=== PATIENT | female | born 1935 | race Caucasian/White ===

== ENCOUNTER 2017-11-13 08:33 | Emergency (ER) | payer OTHER ==
[2017-11-13 09:05] VITALS: BP 128/78
--- NOTE | 2017-11-13 09:23 | UC ---
Lower Extremity/Ankle HPI - HPI Summary HPI Summary: She has hx of swelling and intermittent cellulitis. She says this looks and feels similar to prior episodes. She is on diuretics. 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 No hx of CHF. She denies new or worsening PND , orthopnea, GARZA, chest pain or sob. She uses compression stockings when she can tolerate them. No fever or chills. No posterior calf pain. No hx of MRSA or DM. - History of Current Complaint Chief Complaint: UCSkin Stated Complaint: PAUL LEG SWELLING Time Seen by Provider: 11/13/17 08:59 Hx Obtained From: Patient Onset/Duration: Gradual Onset, Lasting Days, Still Present Severity Initially: Moderate Severity Currently: Moderate Pain Intensity: 3 Aggravating Factor(s): Standing, Ambulation Alleviating Factor(s): Rest, Elevation Able to Bear Weight: Yes - Allergies/Home Medications Allergies/Adverse Reactions: Allergies Allergy/AdvReac Type Severity Reaction Status Date / Time Generics AdvReac "can't Uncoded 11/13/17 09:01 tolerate" Pain Relievers AdvReac GI Upset Uncoded 11/13/17 09:01 Home Medications: Home Medications Albuterol 2.5MG/3ML (0.083%)* [Ventolin 2.5 MG/3 ML NEB.JOSE*] 1.25 mg INH Q6H PRN 11/13/17 [History Confirmed 11/13/17] Cholecalciferol TAB* [Vitamin D TAB*] 2,000 units PO DAILY 11/13/17 [History Confirmed 11/13/17] Fluticasone-Salmeterol 250-50* [Advair Diskus 250-50*] 1 puff INH DAILY [History Confirmed 11/13/17] Hydrochlorothiazide TAB* [Hydrodiuril TAB*] 12.5 mg PO DAILY 11/13/17 [History Confirmed 11/13/17] Irbesartan (NF) [Avapro (NF)] 150 mg PO DAILY 11/13/17 [History Confirmed ] Levothyroxine TAB* [Synthroid TAB*] 112 mcg PO DAILY 11/13/17 [History Confirmed 11/13/17] Pantoprazole TAB (NF) [Protonix TAB (NF)] 40 mg PO DAILY 11/13/17 [History Confirmed 11/13/17] Vitamin THERAPEUTIC TAB* [Theragran TAB*] 1 tab PO DAILY 11/13/17 [History Confirmed 11/13/17] PMH/Surg Hx/FS Hx/Imm Hx Previously Healthy: No - Aortic stenosis. - Surgical History Surgical History: Yes Surgery Procedure, Year, and Place: Cholecystectomy, 1984, [place]; Total Hysterectomy, 1970, [place]; Ovarian Cystectomy, 1958, [place]; Appendectomy, 1942, [place] - Family History Known Family History: Positive: Other - No FH related to cellulitis or leg redness. - Social History Alcohol Use: Rare Substance Use Type: None Smoking Status (MU): Former Smoker Length of Time of Smoking/Using Tobacco: 1 - 1 1/2 PPD x 17 Years When Did the Patient Quit Smoking/Using Tobacco: 1968 Review of Systems Skin: Other - skin redness of paul shins. Musculoskeletal: Edema All Other Systems Reviewed And Are Negative: Yes Physical Exam Triage Information Reviewed: Yes Appearance: Well-Appearing, No Pain Distress, Obese Vital Signs: Initial Vital Signs Temp 98.3 F 11/13/17 08:54 Pulse 100 11/13/17 08:54 Resp 18 11/13/17 08:54 BP 128/78 11/13/17 08:54 Pulse Ox 98 11/13/17 08:54 Vital Signs Reviewed: Yes Eyes: Positive: Conjunctiva Clear. Negative: Conjunctiva Inflamed ENT: Positive: Normal ENT inspection. Negative: Nasal congestion, Nasal drainage Neck: Positive: Supple, Nontender, No Lymphadenopathy Respiratory: Positive: Lungs clear, Normal breath sounds, No respiratory distress, No accessory muscle use. Negative: Respiratory distress, Decreased breath sounds, Accessory muscle use, Crackles, Rhonchi, Stridor Cardiovascular: Positive: Brisk Capillary Refill, Murmur:Sys:Grade _?_/ - 3. Negative: Tachycardia Abdomen Description: Positive: No Organomegaly, Soft. Negative: Distended, Guarding Musculoskeletal: Positive: Strength Intact, Edema @ - Paul shins/ankles. No calf tenderness. Neg homans paul. Neurological: Positive: Alert, Muscle Tone Normal, Fatigued Psychological: Positive: Age Appropriate Behavior Skin: Positive: Other - Paul lower anterior calves are pink. Not hot or red. No severe tenderness. Lower Extremity Course/Dx - Course Course Of Treatment: cellulitis with out hx of dm or mrsa. We discussed how to reduce the swelling. She agrees to return for any worrisome features such as fever, worsening redness. - Differential Dx/Diagnosis Provider Diagnoses: cellulitis. chronic swelling. Discharge - Sign-Out/Discharge Documenting (check all that apply): Patient Departure - Discharge Plan Condition: Good Disposition: HOME Prescriptions: Dicloxacillin CAP* [Dynapen CAP*] 500 mg PO TID #30 cap Patient Education Materials: Cellulitis (ED) Referrals: Stephanie Kumar MD [Primary Care Provider] - 1 Day Additional Instructions: Return for re evaluation if this gets worse. - Billing Disposition and Condition Condition: GOOD Disposition: Home
--- NOTE | 2017-11-14 14:27 | UC ---
- Progress Note Progress Note: patient unable to tolerate dicloaxcillin, will switch antibiotic to aomxicillin to cover strep Discharge - Sign-Out/Discharge Documenting (check all that apply): Post-Discharge Follow Up - Discharge Plan Condition: Good Disposition: HOME Prescriptions: Dicloxacillin CAP* [Dynapen CAP*] 500 mg PO TID #30 cap Patient Education Materials: Cellulitis (ED) Referrals: Stephanie Kumar MD [Primary Care Provider] - 1 Day Additional Instructions: Return for re evaluation if this gets worse. - Billing Disposition and Condition Condition: GOOD Disposition: Home
== END 2017-11-13 09:27 | disposition home or self-care (01) ==
LOC: UCCORT 08:33
DX: L03.116 Cellulitis of left lower limb (principal); L03.115 Cellulitis of right lower limb; Z88.6 Allergy status to analgesic agent; Z88.8 Allergy status to other drugs, medicaments and biological substances; I35.0 Nonrheumatic aortic (valve) stenosis; Z87.891 Personal history of nicotine dependence
CPT/HCPCS: 99202; G0463

== ENCOUNTER 2017-11-22 07:06 | Emergency (ER) | payer OTHER ==
--- OUTSIDE RECORDS SUMMARY | 2017-11-22 07:18 | XMS REPORT ---
:1935 External Reference #:[id number] Author Organization [facility] Address [address] [place] [address] Phone [phone] Care Team Providers Name Role Phone Stephanie Kumar MD Primary Care Physician Unavailable Payers Type Date Identification Numbers Payment Provider Subscriber Commercial Effective: Policy Number: [id number] [employer] Liya Nguyen 2017 Group Number: [id number] [address] PayID: [id number] [place] [address] Commercial Policy [facility]: [id number] PayID: [id number] [address] [address] [place] [address] Problems Date Description Provider Status Onset: 11/15/2010 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 Active Onset: 01/16/2013 Acute sinusitis Kristal Cheng MD Active Onset: 10/19/2013 Lumbar sprain Stephanie Kumar M.D. Active Family History Date Family Member(s) Problem(s) Comments Father due to Stroke () Mother due to COPD () First Daughter Carotid Stenosis First Daughter Breast Cancer First Brother due to pancreatitis () Second Brother due to COPD () Third Brother due to Unknown Causes () First Sister Diabetes Mellitus, II Social History Type Date Description Comments Marital Status Has been 1 time Occupation Retired ETOH Use Denies alcohol use Smoking Patient is a former smoker Allergies, Adverse Reactions, Alerts Date Description Reaction Status Severity Comments 02/12/2011 Pneumovax active sore arm for 3 weeks 05/29/2011 Hydrochlorothiazide active palpitations 10/24/2010 NKDA inactive Medications Medication Date Status Form Strength Qnty SIG Indications Ordering Provider Jobst Anti-Embolism 03/05 Active Misc 2Pair to be I87.2 Stephanie Knee High/Closed worn Gauss, Toe/Medium Regular daily for M.D. venouos insuffici ency. Wide calf Albuterol Sulfate 08/10 Active Nebulizer 1.25mg/3M 4boxe as L s directed Gauss, up to M.D. four times a day for copd Advair Diskus 08/01 Active Aerosol 250-50mcg 1unit 1 puff [id number] Stephanie /Dose s twice a Chinuss, day M.D. Vitamin B-12 ER 04/25 Active Tablets ER 1000mcg 100ta 1 by bs mouth Chinuss, every day M.D. Vitamin D-3 04/25 Active Capsules 1000Unit 100ca 1 by ps mouth Chinuss, every day M.D. Irbesartan 04/25 Active Tablets 150mg 90tab take 1 Stephanie s tablet by Stacy, mouth M.D. once daily Hydrochlorothiazide 04/25 Active Tablets 12.5mg 90tab take 1 s tablet by Stacy, mouth M.D. every morning Pantoprazole Sodium 04/[address] 40mg 90tab 1 by s mouth Chinuss, every day M.D. Synthroid 04/11 Active Tablets 112mcg 90tab 1 by Stephanie s mouth Chinuss, every day M.D. Travatan Z Active Solution 0.004% Unknown /0000 Azithromycin 05/14 Hx Tablets 250mg 6tabs 2 by J44.0 Jacek Son /Jhon Kumar MD - today, 1 06/04 by arcelia day 2 thru 5 Prednisone 05/14 Hx Tablets 20mg 8tabs 2 by J45.909 Jacek Son /Jhon Kumar MD - every day 06/04 Metronidazole 02/14 Hx Tablets 250mg 30tab 1 by s mouth Stacy, - three M.D. 03/05 times a day Albuterol Sulfate 08/10 Hx Nebulizer 1.25mg/3M as L directed Gauss, - up to M.D. 08/10 times a day for copd Advair HFA 08/01 Hx Aerosol 115-21mcg 8gm 2 puff J45.909 /Act twice day Gauss, - M.D. 08/01 Prednisone 06/26 Hx Tablets 20mg 3tabs 1 by J45.909 mouth Gauss, - daily for M.D. 08/01 3 days Azithromycin 06/26 Hx Tablets 250mg 6tabs 2 by J20.9 mouth Gauss, - today, 1 M.D. 08/01 by mouth /2016 day 2 thru 5 Ventolin HFA 06/20 Hx Aerosol 108(90Bas 24gm 2 puff J45.909 e) four Gauss, - mcg/Act times a M.D. 05/14 day needed Albuterol Sulfate 05/10 Hx Nebulizer 1.25mg/3M 180ml as L directed Gauss, - up to M.D. 09/25 times a day for copd Advair Diskus 04/25 Hx Aerosol 250-50mcg 90uni 1 puff I11.9 /Dose ts twice a Gauss, - day M.D. 06/20 Albuterol Sulfate 04/25 Hx Nebulizer (2.5mg/3M 100un 1 four L) 0.083% its times a Gauss, - day as M.D. 05/10 Hydrochlorothiazide 04/11 Hx Tablets 25mg 90tab 1 by s mouth Gauss, - every day M.D. 04/25 Lidocaine 10/28 Hx Ointment 5% 60uni as 847.2 ts directed Gauss, - bid M.D. 04/11 Cyclobenzaprine HCL 10/19 Hx Tablets 5mg 14tab i twice a 847.2 s day Chinuss, - M.D. 04/11 Lidoderm 10/19 Hx Patches 5% 5unit apply 847.2 s patch to Stacy, - affected M.Surinder 10/28 area back change daily Bactrim DS 08/20 Hx Tablets 800-160mg 14tab 1 po bid 788.1 Gal Mack M.D. 09/08 Cipro 08/19 Hx Tablets 250mg 14tab 1 po bid 788.1 Gal Mack M.D. 08/20 Zithromax Z-Teddy 07/09 Hx Tablets 250mg 6tabs 2 po day 466.0 1 then 1 Stacy, - po daily M.DKarsten 09/08- Augmentin 07/02 Hx Tablets 875-125mg 20tab 1 po bid 466.0 s with food Gal Kumar M.D. 07/09 Zithromax 01/16 Hx Tablets 250mg 6pill 2 po day s 1, 1 po RingMD - qd x days 01/21 2- Lisinopril 12/10 Hx Tablets 40mg 90tab 1 po qd 402.10 Gal Mack M.D. 04/11 Lisinopril 11/10 Hx Tablets 30mg 90tab 1 po qd 402.10 Gal Mack M.D. 12/10 Lisinopril 10/29 Hx Tablets 20mg 135ta 1 and 05/07 402.10 bs po qd Gal Kumar M.D. 11/10 Ventolin HFA 10/29 Hx Aerosol 108(90Bas 1unit 2 puff 786.09 e) s qid prn Stacy - mcg/Act M.DKarsten 04/11 Bactrim DS 10/08 Hx Tablets 800-160mg 14tab 1 po bid 599.0 Gal Mack.Surinder 01/16 Advair Diskus 05/08 Hx Aerosol 250-50mcg 60uni inhale /Dose ts one puff Stacy - by mouth M.DKarsten 04/11 twice a day Ventolin HFA 01/01 Hx Aerosol 108(90Bas 1unit 2 puff 786.09 e) mcg/ac s qid prn Gal Kumar M.D. 10/29 Amoxicillin 09/12 Hx Capsules 500mg 20cap 1 tablets 460.00 s po bid Gal Kumar M.D. 12/02 Lisinopril 05/29 Hx Tablets 40mg 90tab Take One 402.10 s Tablet By Stacy - Mouth Sonali 10/29 Every Day Celexa 05/23 Hx Tablets 10mg 90tab 1 po 786.50 s daily Gal Kumar M.D. 09/12 Diovan HCT 05/15 Hx Tablets 160-12.5m 90tab 1 po qd 402.10 g Gal Mack M.D. 05/29 Xanax 05/15 Hx Tablets 0.5mg 90tab 1 po tid 786.50 s Gal Kumar M.D. 05/23 Protonix 05/[address] 20mg 30tab 1 po qd. s Is Stacy - approved M.DKarsten 07/29 Albuterol Inhaler 02/27 Hx 1unit 2 puffs 493.90 s as needed Stacy - 4 x a day Peter.Surinder 07/29 Advair Diskus 02/27 Hx Aerosol 100-50mcg 1unit 1 puff 493.90 /Dose s bid Gal Kumar M.D. 07/29 Acidophilus 02/22 Hx Capsules 90cap 1 po tid 466.00 Stephanie High-Potency s with Stacy, - meals M.DKarsten 04/11 Tessalon 02/22 Hx Capsules 200mg 30cap 1 po bid 466.00 s prn cough Gal Kumar M.D. 04/11 Ceftin 02/20 Hx Tablets 500mg 20tab 1 po bid Gal Mack M.D. 02/27 Levofloxacin 02/15 Hx Tablets 500mg 10tab 1 po qd Gal Mack M.D. 02/27 Azithromycin 02/12 Hx Tablets 500mg 5tabs 1 po qd 466.00 Gal Kumar M.D. 07/29 Benzonatate 02/12 Hx Capsules 100mg 30cap 1 po q 466.00 s 8hr Gal Pratt M.D. 04/11 Vane Allergy 10/24 Hx Tablets 60mg 90tab 1 po qd Gal Mack M.D. 04/11 Bystolic 10/24 Hx Tablets 10mg 90tab 1 po qd Gal Mack M.D. 10/24 Synthroid 10/24 Hx Tablets 200mcg 90tab 1 po qd Gal Mack M.D. 11/15 Aciphex 10/[address] 20mg 90tab 1 po qd Gal Mack M.D. 11/15 Lisinopril 10/24 Hx Tablets 40mg 90tab 1 po qd 402.10 Gal Mack M.D. 05/15 Albuterol Sulfate 10/24 Hx Tablets 2mg 90tab 1 by Gal Dockery every day Sonali 04/11 as needed Immunizations CPT Code Status Date Vaccine Lot # [id number] Given 04/02/2017 Influenza Virus (Afluria) Split Virus 3 Years Of Age And Older Q2035 Given 04/02/2017 Influenza Virus (Afluria) Split Virus 3 Years Of Age And Older Q2037 Given 04/25/2016 Influenza Vaccine (Fluvirin) 1 Years Of Age Or [id number] Older Q2037 Given 03/23/2013 Influenza Vaccine (Fluvirin) 3 Years Of Age Or Older [id number] Given 03/23/2013 Influenza Vaccine (Fluvirin) 3 Years Of Age Or Older [id number] Given 04/07/2012 Influenza Vaccine (Fluvirin) 3 Years Of Age Or Older [id number] Given 04/07/2012 Influenza Vaccine (Fluvirin) 1 Years Of Age Or [id number] Older [id number] Given 11/15/2010 Pneumovax [place]val[place] [id number] Vital Signs Date Vital Result Comment 10/30/2017 BP Systolic 136 mmHg BP Diastolic 62 mmHg Height 226 inches 18'10" Weight 60.00 lb BMI (Body Mass Index) 0.8 kg/m2 09/25/2017 BP Systolic 144 mmHg BP Diastolic 68 mmHg Height 60 inches 5'0" Weight 225.00 lb BMI (Body Mass Index) 43.9 kg/m2 09/16/2017 BP Systolic 160 mmHg BP Diastolic 90 mmHg BP Systolic Recheck 140 mmHg right arm large cuff BP Diastolic Recheck 68 mmHg right arm large cuff Heart Rate 85 /min Respiratory Rate 18 /min Height 60 inches 5'0" Weight 224.00 lb BMI (Body Mass Index) 43.7 kg/m2 O2 % BldC Oximetry 93 % 06/04/2017 BP Systolic 136 mmHg BP Diastolic 80 mmHg Respiratory Rate 18 /min Height 60 inches 5'0" Weight 224.00 lb BMI (Body Mass Index) 43.7 kg/m2 05/14/2017 BP Systolic 128 mmHg BP Diastolic 66 mmHg Heart Rate 83 /min Body Temperature 98.1 F Respiratory Rate 20 /min Height 60 inches 5'0" Weight 224.00 lb BMI (Body Mass Index) 43.7 kg/m2 03/05/2017 BP Systolic 130 mmHg BP Diastolic 80 mmHg Respiratory Rate 18 /min Height 60 inches 5'0" Weight 229.00 lb BMI (Body Mass Index) 44.7 kg/m2 02/07/2017 BP Systolic 144 mmHg BP Diastolic 80 mmHg Height 60 inches 5'0" Weight 224.00 lb BMI (Body Mass Index) 43.7 kg/m2 12/03/2016 BP Systolic 132 mmHg BP Diastolic 80 mmHg Height 60 inches 5'0" Weight 225.00 lb BMI (Body Mass Index) 43.9 kg/m2 08/15/2016 BP Systolic 142 mmHg BP Diastolic 64 mmHg 08/01/2016 BP Systolic 148 mmHg BP Diastolic 70 mmHg Height 60 inches 5'0" Weight 222.00 lb BMI (Body Mass Index) 43.4 kg/m2 06/26/2016 BP Systolic 124 mmHg BP Diastolic 80 mmHg Body Temperature 97.4 F 06/20/2016 Heart Rate 82 /min O2 % BldC Oximetry 97 % 04/25/2016 BP Systolic 132 mmHg BP Diastolic 80 mmHg Height 60 inches 5'0" Weight 219.00 lb BMI (Body Mass Index) 42.8 kg/m2 11/17/2013 BP Systolic 132 mmHg BP Diastolic 80 mmHg 10/19/2013 BP Systolic 148 mmHg BP Diastolic 74 mmHg 09/08/2013 BP Systolic 148 mmHg sitting BP Diastolic 66 mmHg sitting BP Systolic Recheck 146 mmHg standing BP Diastolic Recheck 70 mmHg standing Height 58 inches 4'10" Weight 225.00 lb BMI (Body Mass Index) 47.0 kg/m2 08/19/2013 BP Systolic 132 mmHg BP Diastolic 80 mmHg 08/06/2013 BP Systolic 122 mmHg BP Diastolic 76 mmHg 07/09/2013 BP Systolic 132 mmHg BP Diastolic 80 mmHg 07/02/2013 BP Systolic 140 mmHg BP Diastolic 88 mmHg Body Temperature 99.2 F 05/26/2013 BP Systolic 140 mmHg BP Diastolic 90 mmHg BP Systolic Recheck 130 mmHg BP Diastolic Recheck 78 mmHg Height 58 inches 4'10" Weight 2289.00 lb BMI (Body Mass Index) 478.3 kg/m2 01/16/2013 BP Systolic 140 mmHg BP Diastolic 70 mmHg Body Temperature 99.5 F 10/29/2012 BP Systolic 132 mmHg BP Diastolic 76 mmHg Height 60 inches 5'0" Weight 233.00 lb BMI (Body Mass Index) 45.5 kg/m2 10/08/2012 BP Systolic 130 mmHg BP Diastolic 80 mmHg 07/30/2012 BP Systolic 130 mmHg BP Diastolic 80 mmHg Height 60 inches 5'0" Weight 222.00 lb BMI (Body Mass Index) 43.4 kg/m2 05/08/2012 BP Systolic 136 mmHg BP Diastolic 72 mmHg 02/18/2012 BP Systolic 132 mmHg BP Diastolic 84 mmHg Height 59 inches 4'11" Weight 227.00 lb BMI (Body Mass Index) 45.8 kg/m2 01/02/2012 BP Systolic 140 mmHg BP Diastolic 78 mmHg Heart Rate 70 /min Weight 229.00 lb O2 % BldC Oximetry 93 % 12/03/2011 BP Systolic 154 mmHg BP Diastolic 84 mmHg Height 59 inches 4'11" Weight 226.00 lb BMI (Body Mass Index) 45.6 kg/m2 09/13/2011 BP Systolic 120 mmHg BP Diastolic 80 mmHg Body Temperature 98.6 F 07/30/2011 BP Systolic 148 mmHg BP Diastolic 78 mmHg Height 59 inches 4'11" Weight 227.00 lb BMI (Body Mass Index) 45.8 kg/m2 05/29/2011 BP Systolic 156 mmHg BP Diastolic 86 mmHg BP Systolic Recheck 150 mmHg BP Diastolic Recheck 80 mmHg Height 59 inches 4'11" Weight 225.00 lb BMI (Body Mass Index) 45.4 kg/m2 05/15/2011 BP Systolic 132 mmHg BP Diastolic 76 mmHg BP Systolic Recheck 145 mmHg BP Diastolic Recheck 78 mmHg Height 59 inches 4'11" Weight 225.00 lb BMI (Body Mass Index) 45.4 kg/m2 02/27/2011 BP Systolic 112 mmHg BP Diastolic 74 mmHg BP Systolic Recheck 128 mmHg BP Diastolic Recheck 72 mmHg 02/22/2011 BP Systolic 128 mmHg BP Diastolic 72 mmHg Body Temperature 98.7 F 02/12/2011 BP Systolic 134 mmHg BP Diastolic 72 mmHg Body Temperature 100.5 F 11/15/2010 BP Systolic 136 mmHg BP Diastolic 80 mmHg Height 60 inches 5'0" Weight 228.00 lb BMI (Body Mass Index) 44.5 kg/m2 BP Systolic 136 mmHg BP Diastolic 88 mmHg BP Systolic Recheck 150 mmHg BP Diastolic Recheck 82 mmHg Height 59 inches 4'11" Weight 230.00 lb BMI (Body Mass Index) 46.4 kg/m2 Results Test Date Test Result H/L Range Note CBS W/Automated Diff 09/21/2017 White Blood Count 8.2 K/uL 3.1-10.7 1 Red Blood Count 4.36 M/uL 3.90-5.40 1 Hemoglobin 13.1 gm/dL 11.6-15.8 1 Hematocrit 40.3 % 36.0-46.1 1 Mean Cell Volume 92.4 fl 80.9-99.0 1 Mean Corpuscular HGB 30.0 pg 25.9-32.7 1 Mean Corpuscular HGB Conc 32.5 g/dL 30.8-34.3 1 Platelet Count 220 K/uL 155-360 1 Red Cell Distri Width SD 45.3 fl 3-47 1 Red Cell Distri Width %CV 13.8 % 11.7-14.4 1 Mean Platelet Volume 13.1 fL High 8.9-12.4 1 Neut% 67.6 % 40.4-72.8 1 Lymph % 20.8 % 20.0-42.0 1 Grand % 9.1 % 4.3-13.2 1 Eo% 1.6 % 0.0-6.6 1 Bas% 0.9 % 0.0-1.1 1 Neut# 5.52 K/uL 1.8-7.0 1 Lymph # 1.70 K/uL 1.0-4.0 1 Grand # 0.74 K/uL 0.3-0.9 1 Eos # 0.13 K/uL 0.0-0.5 1 Baso # 0.07 K/uL 0.0-0.1 1 Basic Metabolic Panel 09/21/2017 Glucose 118 mg/dL High 74-106 1 BUN 18 mg/dL 7-18 1 Creatinine 0.8 mg/dL 0.6-1.3 1 Glom Filtration Rate, Estimate >60 mL/min >60 1 If >60 mL/min >60 1, 2 BUN/Creat 22.5 ratio 1 Sodium 140 mmol/L 136-145 1 Potassium 3.8 mmol/L 3.5-5.1 1 Chloride 104 mmol/L 98-107 1 Carbon Dioxide 27 mmol/L 21-32 1 Anion Gap 9 mEq/L 8-16 1 Calcium 9.1 mg/dL 8.5-10.1 1 Laboratory test finding 09/21/2017 Troponin-I < 0.015 ng/mL 1, 3 Lactic Acid 09/20/2017 Lactic Acid 2.6 mmol/L High 0.4-1.9 4 Lab Reflex >2.0 for Sepsis? Y 4 Laboratory test finding 09/20/2017 NT-proBNP 175.0 pg/mL <450 4 Laboratory test finding 09/20/2017 Lactic Acid 2.0 mmol/L High 0.4-1.9 5 Lactic Acid 09/20/2017 Lactic Acid 2.3 mmol/L High 0.4-1.9 5 Lab Reflex >2.0 for Sepsis? Y 5 Laboratory test finding 09/20/2017 Troponin-I < 0.015 ng/mL 5, 6 Protime 09/20/2017 Protime 14.5 seconds High 12.0-14.4 7 Inr 1.1 0.9-1.1 7, 8 CBS W/Automated Diff 09/20/2017 White Blood Count 9.7 K/uL 3.1-10.7 7 Red Blood Count 4.60 M/uL 3.90-5.40 7 Hemoglobin 13.9 gm/dL 11.6-15.8 7 Hematocrit 42.3 % 36.0-46.1 7 Mean Cell Volume 92.0 fl 80.9-99.0 7 Mean Corpuscular HGB 30.2 pg 25.9-32.7 7 Mean Corpuscular HGB Conc 32.9 g/dL 30.8-34.3 7 Platelet Count 221 K/uL 155-360 7 Red Cell Distri Width SD 46.0 fl 3-47 7 Red Cell Distri Width %CV 13.9 % 11.7-14.4 7 Mean Platelet Volume 13.2 fL High 8.9-12.4 7 Neut% 72.0 % 40.4-72.8 7 Lymph % 17.5 % Low 20.0-42.0 7 Grand % 8.2 % 4.3-13.2 7 Eo% 1.3 % 0.0-6.6 7 Bas% 1.0 % 0.0-1.1 7 Neut# 6.94 K/uL 1.8-7.0 7 Lymph # 1.69 K/uL 1.0-4.0 7 Grand # 0.79 K/uL 0.3-0.9 7 Eos # 0.13 K/uL 0.0-0.5 7 Baso # 0.10 K/uL 0.0-0.1 7 Thyroid Panel + TSH 09/04/2017 T4,Total 10.8 g/dL 4.5-12.0 T3 Uptake 28.8 % 22.0-35.0 TSH 17.04 mIU/L High 0.40-4.50 9 Basic Metab W/O CA 09/04/2017 Sodium 139 mmol/L 135-146 Potassium 3.7 mmol/L 3.5-5.3 Chloride 101 mmol/L 98-110 Carbon Dioxide 28 mmol/L 20-31 Glucose 124 mg/dL High 65-99 10 Urea Nitrogen (BUN) 15 mg/dL 7-25 Creatinine 0.86 mg/dL 0.60-0.88 11 BUN/Creatinine Ratio 16.9 6-22 Laboratory test finding 09/04/2017 Hemoglobin A1c 5.8 % High 0-5.6 12 T4,Free,Calculated 3.11 1.4-3.8 Basic Metab W/O CA 05/20/2017 Sodium 140 mmol/L 135-146 Potassium 3.8 mmol/L 3.5-5.3 Chloride 101 mmol/L 98-110 Carbon Dioxide 28 mmol/L 20-31 Glucose 126 mg/dL High 65-99 13 Urea Nitrogen (BUN) 16 mg/dL 7-25 Creatinine 0.88 mg/dL 0.60-0.88 14 BUN/Creatinine Ratio 18.0 6-22 TSH & T4,Free 05/20/2017 TSH 10.80 mIU/L High 0.40-4.50 15 T4,Free 1.6 ng/dL 0.8-1.8 TSH & T4,Free 02/26/2017 TSH 10.07 mIU/L High 0.40-4.50 16, 17 T4,Free 1.3 ng/dL 0.8-1.8 16 Basic Metabolic Panel 02/26/2017 Sodium 141 mmol/L 135-146 16 Potassium 4.0 mmol/L 3.5-5.3 16 Chloride 103 mmol/L 98-110 16 Carbon Dioxide 27 mmol/L 20-31 16 Calcium 9.1 mg/dL 8.6-10.4 16 Glucose 128 mg/dL High 65-99 16, 18 Urea Nitrogen 18 mg/dL 7-25 16 Creatinine 0.83 mg/dL 0.60-0.88 16, 19 BUN/Creatinine Ratio 21.3 6-22 16 Egfr Non-Afr. Montenegrin 65 ML/MIN/1.73M2 > Or=60 16 Egfr 76 ML/MIN/1.73M2 > Or=60 16 Laboratory test finding 11/26/2016 Glucose 110 mg/dL High 65-99 16, 20 TSH & T4,Free 11/26/2016 TSH 11.01 mIU/L High 0.40-4.50 16, 21 T4,Free 1.3 ng/dL 0.8-1.8 16 CBS W/Automated Diff 08/12/2016 White Blood Count 8.8 K/uL 3.1-10.7 22 Red Blood Count 4.56 M/uL 3.90-5.40 22 Hemoglobin 13.6 gm/dL 11.6-15.8 22 Hematocrit 41.3 % 36.0-46.1 22 Mean Cell Volume 90.6 fl 80.9-99.0 22 Mean Corpuscular HGB 29.8 pg 25.9-32.7 22 Mean Corpuscular HGB Conc 32.9 g/dL 30.8-34.3 22 Platelet Count 212 K/uL 150-400 22 Red Cell Distri Width SD 45.4 fl 3-47 22 Red Cell Distri Width %CV 14.1 % 11.7-14.4 22 Mean Platelet Volume 12.8 fL High 8.9-12.4 22 Neut% 77.3 % High 40.4-72.8 22 Lymph % 15.3 % Low 20.0-42.0 22 Grand % 5.6 % 4.3-13.2 22 Eo% 0.9 % 0.0-6.6 22 Bas% 0.9 % 0.0-1.1 22 Neut# 6.78 K/uL 1.8-7.0 22 Lymph # 1.34 K/uL 1.0-4.0 22 Grand # 0.49 K/uL 0.3-0.9 22 Eos # 0.08 K/uL 0.0-0.5 22 Baso # 0.08 K/uL 0.0-0.1 22 Comprehensive Metabolic Panel 08/12/2016 Glucose 108 mg/dL High 74-106 22 BUN 13 mg/dL 7-18 22 Creatinine 0.8 mg/dL 0.6-1.3 22 Glom Filtration Rate, Estimate >60 mL/min >60 22 If >60 mL/min >60 22, 23 BUN/Creat 16.2 ratio 22 Sodium 142 mmol/L 136-145 22 Potassium 3.8 mmol/L 3.5-5.1 22 Chloride 105 mmol/L 98-107 22 Carbon Dioxide 26 mmol/L 21-32 22 Anion Gap 11 mEq/L 8-16 22 Calcium 8.9 mg/dL 8.5-10.1 22 Total Protein 7.9 g/dL 6.4-8.2 22 Albumin 4.2 g/dL 3.4-5.0 22 Globulin 3.7 g/dL 1.9-4.3 22 Alb/Glob 1.1 ratio 22 Bilirubin,Total 0.5 mg/dL 0.2-1.0 22 Sgot/Ast 43 U/L High 15-37 22 SGPT/Alt 47 U/L 12-78 22 Alkaline Phosphatase 93 U/L 45-117 22 Lipid Panel 07/25/2016 Cholesterol 196 mg/dL 125-200 24 HDL Cholesterol 54 mg/dL > Or=46 24 Cholesterol/HDL Ratio 3.6 < Or=5.0 24 LDL Chol,Calculated 106 mg/dL <130 24, 25 Triglycerides 181 mg/dL High <150 24 Non-HDL Cholesterol 143 mg/dL 24, 26 TSH & T4,Free 07/25/2016 TSH 13.58 mIU/L High 0.40-4.50 24, T4,Free 1.2 ng/dL 0.8-1.8 24 Laboratory 07/25/2016 Vitamin 34 NG/ML 30-100 24, 28 test finding D,25-Hydroxy,Total,Immunoassay CBC W/ Diff & 07/25/2016 WBC 8.4 3.8-10.8 24 PLT thous/L RBC 4.52 mill/L 3.80-5.10 24 Hemoglobin 13.2 g/dL 11.7-15.5 24 Hematocrit 39.4 % 35.0-45.0 24 MCV 87.3 FL 80.0-100.0 24 MCH 29.2 pg 27.0-33.0 24 MCHC 33.4 g/dL 32.0-36.0 24 RDW 14.4 % 11.0-15.0 24 Platelet Count 192 thous/L 140-400 24 Platelet Sufficiency PENDING 24 MPV 12.4 FL 7.5-12.5 24 Neutrophils,Absolute 6150 cells/L 2076-4774 24 Bands,Absolute PENDING 24 Metamyelocytes,Absolute PENDING 24 Myelocytes,Absolute PENDING 24 Promyelocytes,Absolute PENDING 24 Lymphocytes,Absolute 1580 cells/L 850-3900 24 Monocytes,Absolute 420 cells/L 200-950 24 Eosinophils,Absolute 180 cells/L 15-500 24 Basophils,Absolute 20 cells/L 0-200 24 Blast Cells,Absolute PENDING 24 Nucleated RBC,Absolute PENDING 24 Total Neutrophils,% 74 % 40-75 24 Bands,% PENDING 24 Metamyelocytes,% PENDING 24 Myelocytes,% PENDING 24 Promyelocytes,% PENDING 24 Total Lymphocytes,% 19 % 12-47 24 Monocytes,% 5 % 4-12 24 Eosinophils,% 2 % 0-4 24 Basophils,% 0 % 0-1 24, 29 Blasts,% PENDING 24 Nucleated RBC PENDING 24 RBC Morphology PENDING 24 Anisocytosis PENDING 24 Poikilocytosis PENDING 24 Microcytosis PENDING 24 Macrocytosis PENDING 24 Polychromasia PENDING 24 Hypochromasia PENDING 24 Target Cells PENDING 24 Basophilic Stippling PENDING 24 Comment PENDING 24 Basic Metabolic Panel 07/25/2016 Sodium 139 mmol/L 135-146 24 Potassium 3.9 mmol/L 3.5-5.3 24 Chloride 101 mmol/L 98-110 24 Carbon Dioxide 27 mmol/L 20-31 24 Calcium 9.6 mg/dL 8.6-10.4 24 Glucose 127 mg/dL High 65-99 24, 30 Urea Nitrogen 18 mg/dL 7-25 24 Creatinine 0.79 mg/dL 0.60-0.88 24, 31 BUN/Creatinine Ratio 22.5 High 6-22 24 Egfr Non-Afr. Montenegrin 69 ML/MIN/1.73M2 > Or=60 24 Egfr 80 ML/MIN/1.73M2 > Or=60 24 Laboratory test finding 11/12/2013 Glucose,Random,Plasma 114 mg/dL <140 24 Basic Metabolic Panel 09/01/2013 Glucose 109 mg/dL 76-115 BUN 10 mg/dL 5-23 Creatinine 0.8 mg/dL 0.5-1.4 Glom Filtration Rate, Estimate >60 mL/min >60 If >60 mL/min >60 32 BUN/Creat 12.5 ratio Sodium 142 mmol/L 136-145 Potassium 3.9 mmol/L 3.5-5.1 Chloride 111 mmol/L High 98-107 Carbon Dioxide 25 mEq/L 18-29 Anion Gap 10 mEq/L 8-16 Calcium 8.7 mg/dL 8.5-10.1 Laboratory test finding 09/01/2013 Magnesium 1.7 mg/dL 1.7-2.3 CBC 09/01/2013 White Blood Count 6.2 K/uL 3.1-10.7 Red Blood Count 3.84 M/uL Low 3.90-5.40 Hemoglobin 11.7 gm/dL 11.6-15.8 Hematocrit 36.2 % 36.0-46.1 Mean Cell Volume 94.3 fl 80.9-99.0 Mean Corpuscular HGB 30.5 pg 25.9-32.7 Mean Corpuscular HGB Conc 32.3 g/dL 30.8-34.3 Platelet Count 179 K/uL 155-360 Red Cell Distri Width %CV 13.4 % 11.7-14.4 Mean Platelet Volume 13.4 fL High 8.9-12.4 CBC 08/31/2013 White Blood Count 9.4 K/uL 3.1-10.7 Red Blood Count 4.06 M/uL 3.90-5.40 Hemoglobin 12.3 gm/dL 11.6-15.8 Hematocrit 38.0 % 36.0-46.1 Mean Cell Volume 93.6 fl 80.9-99.0 Mean Corpuscular HGB 30.3 pg 25.9-32.7 Mean Corpuscular HGB Conc 32.4 g/dL 30.8-34.3 Platelet Count 178 K/uL 155-360 Red Cell Distri Width %CV 13.2 % 11.7-14.4 Mean Platelet Volume 13.2 fL High 8.9-12.4 Basic Metabolic Panel 08/31/2013 Glucose 124 mg/dL High 76-115 BUN 18 mg/dL 5-23 Creatinine 1.0 mg/dL 0.5-1.4 Glom Filtration Rate, Estimate 57 mL/min >60 If >60 mL/min >60 33 BUN/Creat 18.0 ratio Sodium 143 mmol/L 136-145 Potassium 4.3 mmol/L 3.5-5.1 Chloride 110 mmol/L High 98-107 Carbon Dioxide 27 mEq/L 18-29 Anion Gap 10 mEq/L 8-16 Calcium 8.7 mg/dL 8.5-10.1 Urinalysis With Microscopic 08/30/2013 Urine Color YELLOW Yellow Urine Clarity CLEAR Clear Urine Glucose - Dipstick NEGATIVE mg/dL Negative Urine Bilirubin - Dipstick NEGATIVE Negative Urine Ketone TRACE mg/dL High Negative Urine Specific [place] >=1.030 1.010-1.030 Urine Blood TRACE Negative Urine PH 5.0 Low 6.5-7.5 Urine Protein - Dipstick TRACE mg/dL Negative Urine Urobilinogen - Dipstick 0.2 E.U./dL 0.2-1.0 Urine Nitrite - Dipstick NEGATIVE Negative Urine Leuk Esterase SMALL High Negative Urine RBC 2-5 rbc/hpf 0-7 Urine WBC 10-20 wbc/hpf High 0-7 Urine Epithelial Cells MODERATE NONESEEN/lpf 34 Urine Calcium Oxalate Crystals FEW NONESEEN Urine Bacteria MODERATE NONESEEN High Urine Mucus SMALL NONESEEN Laboratory test finding 08/30/2013 Culture If Indicated Comment See Note 35 Urine Screen See Note 36 Urine Culture See Note 37 Comprehensive Metabolic Panel 08/30/2013 Glucose 134 mg/dL High 76-115 BUN 14 mg/dL 5-23 Creatinine 0.7 mg/dL 0.5-1.4 Glom Filtration Rate, Estimate >60 mL/min >60 If >60 mL/min >60 38 BUN/Creat 20.0 ratio Sodium 140 mmol/L 136-145 Potassium 3.7 mmol/L 3.5-5.1 Chloride 107 mmol/L 98-107 Carbon Dioxide 25 mEq/L 18-29 Anion Gap 12 mEq/L 8-16 Calcium 9.0 mg/dL 8.5-10.1 Total Protein 7.8 g/dL 6.3-8.0 Albumin 4.1 g/dL 3.5-5.0 Globulin 3.7 g/dL 1.9-4.3 Alb/Glob 1.1 ratio Bilirubin,Total 0.3 mg/dL 0.2-1.2 Sgot/Ast 37 U/L 16-40 SGPT/Alt 46 U/L 30-65 Alkaline Phosphatase 106 U/L 50-136 Laboratory test finding 08/30/2013 Lipase 176 U/L 28-380 CBC W/Automated Diff 08/30/2013 White Blood Count 9.1 K/uL 3.1-10.7 Red Blood Count 4.34 M/uL 3.90-5.40 Hemoglobin 13.6 gm/dL 11.6-15.8 Hematocrit 40.2 % 36.0-46.1 Mean Cell Volume 92.6 fl 80.9-99.0 Mean Corpuscular HGB 31.3 pg 25.9-32.7 Mean Corpuscular HGB Conc 33.8 g/dL 30.8-34.3 Platelet Count 209 K/uL 155-360 Red Cell Distri Width SD 44.1 fl 3-47 Red Cell Distri Width %CV 13.3 % 11.7-14.4 Mean Platelet Volume 12.9 fL High 8.9-12.4 Neut% 76.8 % High 40.4-72.8 Lymph % 15.6 % Low 17.0-46.1 Grand % 6.0 % 4.3-13.2 Eo% 0.9 % 0.0-6.6 Bas% 0.7 % 0.0-1.1 Neut# 6.96 K/uL 1.0-7.0 Lymph # 1.41 K/uL 0.8-3.4 Grand # 0.54 K/uL 0.3-0.9 Eos # 0.08 K/uL 0.0-0.5 Baso # 0.06 K/uL 0.0-0.1 Laboratory test finding 08/14/2013 Direct LDL 115 mg/dL <130 24, 39 Hemoglobin A1c 5.8 % High 0.0-5.6 24, 40 Glucose 120 mg/dL High 65-99 24, 41 BMP W/O Egfr 05/19/2013 Sodium 141 mmol/L 135-146 24 Potassium 4.5 mmol/L 3.5-5.3 24 Chloride 105 mmol/L 98-110 24 Carbon Dioxide 25 mmol/L 19-30 24 Calcium 9.4 mg/dL 8.6-10.4 24 Glucose 119 mg/dL High 65-99 24, 42 Urea Nitrogen 12 mg/dL 7- 24 Creatinine 0.77 mg/dL 0.60-0.88 24, 43 BUN/Creatinine Ratio 15.7 6-22 24 Lipid Panel 05/19/2013 Cholesterol 189 mg/dL 125-200 24 HDL Cholesterol 45 mg/dL Low > Or=46 24 Cholesterol/HDL Ratio 4.2 < Or=5.0 24 LDL Chol,Calculated 97 mg/dL <130 24, 44 Triglycerides 235 mg/dL High <150 24 Non-HDL Cholesterol 144 mg/dL 24, 45 BMP W/O Egfr 02/05/2013 Sodium 141 mmol/L 135-146 24 Potassium 4.0 mmol/L 3.5-5.3 24 Chloride 105 mmol/L 98-110 24 Carbon Dioxide 22 mmol/L - 24 Calcium 9.3 mg/dL 8.6-10.4 24 Glucose 118 mg/dL High 65-99 24, 46 Urea Nitrogen 12 mg/dL - 24 Creatinine 0.79 mg/dL 0.60-0.93 24, 47 BUN/Creatinine Ratio 15.2 6-22 24 CBC W/ Diff & PLT 02/05/2013 WBC 6.6 thous/L 3.8-10.8 24 RBC 4.34 mill/L 3.80-5.10 24 Hemoglobin 13.1 g/dL 11.7-15.5 24 Hematocrit 40.1 % 35.0-45.0 24 MCV 92.4 FL 80.0-100.0 24 MCH 30.1 pg 27.0-33.0 24 MCHC 32.6 g/dL 32.0-36.0 24 RDW 13.5 % 11.0-15.0 24 Platelet Count 195 thous/L 140-400 24 Neutrophils,Absolute 4630 cells/L 8591-8759 24 Lymphocytes,Absolute 1520 cells/L 850-3900 24 Monocytes,Absolute 340 cells/L 200-950 24 Eosinophils,Absolute 100 cells/L 15-500 24 Basophils,Absolute 10 cells/L 0-200 24 Total Neutrophils,% 70 % 38-80 24 Total Lymphocytes,% 23 % 15-49 24 Monocytes,% 5 % 0-13 24 Eosinophils,% 2 % 0-8 24 Basophils,% 0 % 0-2 24 Laboratory test finding 02/05/2013 Direct LDL 120 mg/dL <130 24, 48 Hemoglobin A1c 5.8 % High 0.0-5.6 24, 49 Laboratory test finding 10/21/2012 Direct LDL 132 mg/dL High <130 24, 50 Hemoglobin A1c 5.8 % High 0.0-5.6 24, 51 BMP W/O Egfr 07/23/2012 Sodium 141 mmol/L 135-146 24 Potassium 4.1 mmol/L 3.5-5.3 24 Chloride 105 mmol/L 98-110 24 Carbon Dioxide 25 mmol/L 19-30 24 Calcium 9.3 mg/dL 8.6-10.4 24 Glucose 114 mg/dL High 65-99 24, 52 Urea Nitrogen 15 mg/dL 7-25 24 Creatinine 0.70 mg/dL 0.60-0.93 24, 53 BUN/Creatinine Ratio 21.1 6-22 24 Laboratory test finding 07/23/2012 Direct LDL 122 mg/dL <130 24, 54 Hemoglobin A1c 5.8 % High 0.0-5.6 24, 55 CBC W/ Diff & PLT 07/23/2012 WBC 7.7 thous/L 3.8-10.8 24 RBC 4.34 mill/L 3.80-5.10 24 Hemoglobin 13.6 g/dL 11.7-15.5 24 Hematocrit 40.3 % 35.0-45.0 24 MCV 92.8 FL 80.0-100.0 24 MCH 31.3 pg 27.0-33.0 24 MCHC 33.7 g/dL 32.0-36.0 24 RDW 13.8 % 11.0-15.0 24 Platelet Count 192 thous/L 140-400 24 Neutrophils,Absolute 5400 cells/L 8371-1726 24 Lymphocytes,Absolute 1800 cells/L 850-3900 24 Monocytes,Absolute 370 cells/L 200-950 24 Eosinophils,Absolute 110 cells/L 15-500 24 Basophils,Absolute 30 cells/L 0-200 24 Total Neutrophils,% 70 % 38-80 24 Total Lymphocytes,% 23 % 15-49 24 Monocytes,% 5 % 0-13 24 Eosinophils,% 1 % 0-8 24 Basophils,% 0 % 0-2 24 Comp Metabolic Panel 02/15/2012 Sodium 140 mmol/L 135-146 24 Potassium 4.0 mmol/L 3.5-5.3 24 Chloride 106 mmol/L 98-110 24 Carbon Dioxide 27 mmol/L 21-33 24 Calcium 9.5 mg/dL 8.6-10.4 24 Alkaline Phosphatase 79 U/L 33-130 24 Ast 43 U/L High 10-35 24 Alt 35 U/L 6-40 24 Bilirubin,Total 0.4 mg/dL 0.2-1.2 24 Glucose 89 mg/dL 65-99 24, 56 Urea Nitrogen 11 mg/dL 7-25 24 Creatinine 0.72 mg/dL 0.60-0.93 24, 57 BUN/Creatinine Ratio 15.4 6-22 24 Protein,Total 7.2 g/dL 6.2-8.3 24 Albumin 4.8 g/dL 3.6-5.1 24 Globulin,Calculated 2.4 g/dL 2.2-3.9 24 A/G Ratio 2.0 1.0-2.1 24 Egfr Non-Afr. [place] 80 ML/MIN/1.73M2 > Or=60 24 Egfr 93 ML/MIN/1.73M2 > Or=60 24 CBC W/ Diff & PLT 02/15/2012 WBC 6.8 thous/L 3.8-10.8 24 RBC 4.38 mill/L 3.80-5.10 24 Hemoglobin 13.5 g/dL 11.7-15.5 24 Hematocrit 40.6 % 35.0-45.0 24 MCV 92.7 FL 80.0-100.0 24 MCH 30.8 pg 27.0-33.0 24 MCHC 33.2 g/dL 32.0-36.0 24 RDW 13.1 % 11.0-15.0 24 Platelet Count 181 thous/L 140-400 24 Neutrophils,Absolute 4770 cells/L 3195-5291 24 Lymphocytes,Absolute 1570 cells/L 850-3900 24 Monocytes,Absolute 360 cells/L 200-950 24 Eosinophils,Absolute 100 cells/L 15-500 24 Basophils,Absolute 20 cells/L 0-200 24 Total Neutrophils,% 70 % 38-80 24 Total Lymphocytes,% 23 % 15-49 24 Monocytes,% 5 % 0-13 24 Eosinophils,% 2 % 0-8 24 Basophils,% 0 % 0-2 24 CBC W/ Diff & PLT 11/23/2011 WBC 7.5 thous/L 3.8-10.8 24 RBC 4.19 mill/L 3.80-5.10 24 Hemoglobin 13.2 g/dL 11.7-15.5 24 Hematocrit 38.7 % 35.0-45.0 24 MCV 92.3 FL 80.0-100.0 24 MCH 31.6 pg 27.0-33.0 24 MCHC 34.2 g/dL 32.0-36.0 24 RDW 13.6 % 11.0-15.0 24 Platelet Count 191 thous/L 140-400 24 Neutrophils,Absolute 5260 cells/L 9760-8639 24 Lymphocytes,Absolute 1720 cells/L 850-3900 24 Monocytes,Absolute 410 cells/L 200-950 24 Eosinophils,Absolute 80 cells/L 15-500 24 Basophils,Absolute 10 cells/L 0-200 24 Total Neutrophils,% 70 % 38-80 24 Total Lymphocytes,% 23 % 15-49 24 Monocytes,% 6 % 0-13 24 Eosinophils,% 1 % 0-8 24 Basophils,% 0 % 0-2 24 Basic Metabolic Panel 11/23/2011 Sodium 141 mmol/L 135-146 24 Potassium 4.2 mmol/L 3.5-5.3 24 Chloride 106 mmol/L 98-110 24 Carbon Dioxide 23 mmol/L 21-33 24 Calcium 9.6 mg/dL 8.6-10.4 24 Glucose 115 mg/dL High 65-99 24, 58 Urea Nitrogen 12 mg/dL 7-25 24 Creatinine 0.80 mg/dL 0.60-0.93 24, 59 BUN/Creatinine Ratio 15.4 6-22 24 Egfr Non-Afr. [place] 71 ML/MIN/1.73M2 > Or=60 24 Egfr 82 ML/MIN/1.73M2 > Or=60 24 Lipid Panel 11/23/2011 Cholesterol 195 mg/dL 125-200 24 HDL Cholesterol 46 mg/dL > Or=46 24 Cholesterol/HDL Ratio 4.2 < Or=5.0 24 LDL Chol,Calculated 104 mg/dL <130 24, 60 Triglycerides 224 mg/dL High <150 24 Non-HDL Cholesterol 149 mg/dL 24, 61 TSH & T4,Free 11/23/2011 TSH 21.88 mIU/L High 0.40-4.50 24, 62 T4,Free 0.9 ng/dL 0.8-1.8 24 Laboratory test finding 05/15/2011 Hemoglobin A1c 5.7 % High 0.0-5.6 63 Laboratory test finding 05/07/2011 Aot Request Test(s) added 64 LDL Cholesterol Profile 05/07/2011 Cholesterol 180 mg/dL 120-200 Triglycerides 153 mg/dL 16-231 HDL Cholesterol 48 mg/dL 29-83 LDL-Cholesterol 101 mg/dL 62-185 Laboratory test 05/06/2011 Troponin-I < 0.02 ng/mL 0.00-0.50 65 finding Glycohemoglobin A1c 05/06/2011 Glycohemoglobin (A1c) 6.2 % High 4.8-6.0 66 eAG 131 mg/dL CBS W/Automated Diff 05/06/2011 White Blood Count 6.7 K/uL 3.1-10.7 Red Blood Count 4.64 M/uL 3.90-5.40 Hemoglobin 14.1 gm/dL 11.6-15.8 Hematocrit 43.1 % 36.0-46.1 Mean Cell Volume 92.9 fl 80.9-99.0 Mean Corpuscular HGB 30.4 pg 25.9-32.7 Mean Corpuscular HGB Conc 32.7 g/dL 30.8-34.3 Platelet Count 190 K/uL 155-360 Red Cell Distri Width %CV 13.0 % 11.7-14.4 Mean Platelet Volume 12.5 fL High 8.9-12.4 Neut% 73.8 % High 40.4-72.8 Lymph % 19.5 % 17.0-46.1 Grand % 4.5 % 4.3-13.2 Eo% 1.3 % 0.0-6.6 Bas% 0.9 % 0.0-1.1 Neut# 4.93 K/uL 1.0-7.0 Lymph # 1.30 K/uL 0.8-3.4 Grand # 0.30 K/uL 0.3-0.9 Eos # 0.09 K/uL 0.0-0.5 Baso # 0.06 K/uL 0.0-0.1 Red Cell Distri Width SD 43.4 fl 3-47 Laboratory test finding 05/06/2011 CK 123 U/L 26-190 Troponin-I < 0.02 ng/mL 0.00-0.50 67 Comprehensive Metabolic Panel 05/06/2011 Glucose 185 mg/dL High 76-115 BUN 12 mg/dL 5-23 Creatinine 0.9 mg/dL 0.5-1.4 Glom Filtration Rate, Estimate >60 mL/min >60 If >60 mL/min >60 68 BUN/Creat 13.3 ratio Sodium 141 mmol/L 136-145 Potassium 3.5 mmol/L 3.5-5.1 Chloride 107 mmol/L 98-107 Carbon Dioxide 21 mEq/L 18-29 Anion Gap 17 mEq/L High 8-16 Calcium 8.9 mg/dL 8.5-10.1 Total Protein 7.7 g/dL 6.3-8.0 Albumin 4.1 g/dL 3.5-5.0 Globulin 3.6 g/dL 1.9-4.3 Alb/Glob 1.1 ratio Bilirubin,Total 0.5 mg/dL 0.2-1.2 Sgot/Ast 49 U/L High 16-40 SGPT/Alt 59 U/L 30-65 Alkaline Phosphatase 84 U/L 50-136 Urinalysis With Microscopic 05/06/2011 Urine Color YELLOW Yellow Urine Clarity CLEAR Clear Urine Glucose - Dipstick NEGATIVE mg/dL Negative Urine Bilirubin - Dipstick NEGATIVE Negative Urine Ketone NEGATIVE mg/dL Negative Urine Specific [place] >=1.030 1.010-1.030 Urine Blood TRACE Negative Urine PH 5.5 Low 6.5-7.5 Urine Protein - Dipstick NEGATIVE mg/dL Negative Urine Urobilinogen - Dipstick 0.2 E.U./dL 0.2-1.0 Urine Nitrite - Dipstick NEGATIVE Negative Urine Leuk Esterase TRACE High Negative Urine RBC 0-2 rbc/hpf 0-7 Urine WBC 7-10 wbc/hpf High 0-7 Urine Epithelial Cells FEW NONESEEN Laboratory test finding 05/06/2011 Urine Screen See Note 69 Laboratory test finding 05/06/2011 D-Dimer, Quantitative 0.31 ug/mL 70 Laboratory test finding 05/06/2011 Troponin-I < 0.02 ng/mL 0.00-0.50 71 Laboratory test finding 02/20/2011 LDL Cholesterol,Direct 118 mg/dL <130 72 Glucose 104 mg/dL High 65-99 73 TSH & T4,Free 02/20/2011 TSH,3RD Generation 17.38 mIU/L High 0.40-4.50 74 T4,Free 1.1 ng/dL 0.8-1.8 Basic Metabolic Panel 11/09/2010 Sodium 142 mmol/L 135-146 24 Potassium 4.2 mmol/L 3.5-5.3 24 Chloride 106 mmol/L 98-110 24 Carbon Dioxide 24 mmol/L 21-33 24 Calcium 9.4 mg/dL 8.6-10.2 24 Glucose 107 mg/dL High 65-99 24, 75 Urea Nitrogen 11 mg/dL 7-25 24 Creatinine 0.73 mg/dL 0.63-1.22 24 BUN/Creatinine Ratio 15.5 6-22 24 Egfr Non-Afr. [place] 79 ML/MIN/1.73M2 > Or=60 24 Egfr 92 ML/MIN/1.73M2 > Or=60 24 TSH & T4,Free 11/09/2010 TSH,3RD Generation 20.45 mIU/L High 0.40-4.50 24 , 76 T4,Free 0.9 ng/dL 0.8-1.8 24 CBC W/ Diff & PLT 11/09/2010 WBC 6.2 thous/L 3.8-10.8 24 RBC 4.30 mill/L 3.80-5.10 24 Hemoglobin 13.2 g/dL 11.7-15.5 24 Hematocrit 40.1 % 35.0-45.0 24 MCV 93.2 FL 80.0-100.0 24 MCH 30.7 pg 27.0-33.0 24 MCHC 32.9 g/dL 32.0-36.0 24 RDW 13.5 % 11.0-15.0 24 Platelet Count 196 thous/L 140-400 24 Neutrophils,Absolute 4170 cells/L 8657-6305 24 Lymphocytes,Absolute 1520 cells/L 850-3900 24 Monocytes,Absolute 290 cells/L 200-950 24 Eosinophils,Absolute 140 cells/L 15-500 24 Basophils,Absolute 40 cells/L 0-200 24 Total Neutrophils,% 68 % 38-80 24 Total Lymphocytes,% 25 % 15-49 24 Monocytes,% 5 % 0-13 24 Eosinophils,% 2 % 0-8 24 Basophils,% 1 % 0-2 24 Liver Kidney Microsome AB 11/09/2010 LKM-1 AB (Igg) <=20.0 U 24, 77 (Igg) Vitamin D, 25 Hydroxy 11/09/2010 Vitamin D,25-Oh,Total 9 ng/mL Low 30-100 24 Vitamin D,25-Oh,D3 9 ng/mL 24 Vitamin D,25-Oh,D2 <4 ng/mL 24, 78 1 CHEST PAIN 2 Note: Persistent reduction for 3 months or more in an eGFR <60 mL/min/1.73 m2 defines CKD. Patients with eGFR values >/=60 mL/min/1.73 m2 may also have CKD if evidence of persistent proteinuria is present. The original MDRD equation for estimated GFR is not valid for patients less than 18 years of age. Additional information may be found at [email or web address]. 3 0.0 - 0.045 ng/mL: Normal 0.046 - 0.5 ng/mL: Suggestive 0.6 - 1.5 ng/mL: Consistent 4 SOB, CP 5 CHEST PAIN 6 0.0 - 0.045 ng/mL: Normal 0.046 - 0.5 ng/mL: Suggestive 0.6 - 1.5 ng/mL: Consistent 7 SOB, CP 8 THERAPEUTIC INR RANGE: 2.0 - 3.0 DVT, Pulmonary embolus, prophylaxis against venous thrombosis or systemic embolization in high risk patients. 2.5 - 3.5 Mechanical heart valves 9 REFERENCE RANGES BELOW ARE APPLICABLE TO FEMALES FIRST TRIMESTER - 0.26 - 2.66 mIU/L SECOND TRIMESTER - 0.55 - 2.73 mIU/L THIRD TRIMESTER - 0.43 - 2.91 mIU/L 10 GLUCOSE REFERENCE RANGE BASED ON FASTING SPECIMEN. 11 The upper reference limit for Creatinine is approximately 13% higher for people identified as -[place]. 12 For someone without known diabetes, a hemoglobin A1C value between 5.7% and 6.4% is consistent with prediabetes and should be confirmed with a follow-up test. For someone with known diabetes, a value <7% indicates that their diabetes is well controlled. A1C targets should be individualized based on duration of diabetes, age, co-morbid conditions and other considerations. This assay result is consistent with an increased risk of diabetes. Currently, no consensus exists regarding use of hemoglobin A1C for diagnosis of diabetes in children. FOR DIAGNOSTIC PURPOSES: A1C VALUE(% OF TOTAL HEMOGLOBIN) INTERPRETATION < 5.7 CONSISTENT WITH THE ABSENCE OF DIABETES 5.7 - 6.4 CONSISTENT WITH INCREASED RISK OF DIABETES > OR=6.5 CONSISTENT WITH DIABETES FOR MONITORING PURPOSES (ADA GUIDELINNES): A1C VALUE(% OF TOTAL HEMOGLOBIN) INTERPRETATION < 6.5 ACHIEVES STRINGENT GLYCEMIC GOAL < 7.0 ACHIEVES GENERAL GLYCEMIC GOAL(NON- ADULTS) < 8.0 ACHIEVES LESS STRINGENT GLYCEMIC GOAL 13 GLUCOSE REFERENCE RANGE BASED ON FASTING SPECIMEN. 14 The upper reference limit for Creatinine is approximately 13% higher for people identified as -[place]. 15 REFERENCE RANGES BELOW ARE APPLICABLE TO FEMALES FIRST TRIMESTER - 0.26 - 2.66 mIU/L SECOND TRIMESTER - 0.55 - 2.73 mIU/L THIRD TRIMESTER - 0.43 - 2.91 mIU/L 16 FASTING 17 REFERENCE RANGES BELOW ARE APPLICABLE TO FEMALES FIRST TRIMESTER - 0.26 - 2.66 mIU/L SECOND TRIMESTER - 0.55 - 2.73 mIU/L THIRD TRIMESTER - 0.43 - 2.91 mIU/L 18 GLUCOSE REFERENCE RANGE BASED ON FASTING SPECIMEN. 19 The upper reference limit for Creatinine is approximately 13% higher for people identified as -[place]. 20 GLUCOSE REFERENCE RANGE BASED ON FASTING SPECIMEN. 21 REFERENCE RANGES BELOW ARE APPLICABLE TO FEMALES FIRST TRIMESTER - 0.26 - 2.66 mIU/L SECOND TRIMESTER - 0.55 - 2.73 mIU/L THIRD TRIMESTER - 0.43 - 2.91 mIU/L 22 SORE THROAT, L SIDE NECK SWOLLEN 23 Note: Persistent reduction for 3 months or more in an eGFR <60 mL/min/1.73 m2 defines CKD. Patients with eGFR values >/=60 mL/min/1.73 m2 may also have CKD if evidence of persistent proteinuria is present. The original MDRD equation for estimated GFR is not valid for patients less than 18 years of age. Additional information may be found at [email or web address]. 24 FASTING 25 LDL-CHOLESTEROL RISK CATEGORY* GOAL VERY HIGH (E.G. DIABETES + CVD) <70 MG/DL HIGH (DIABETICS; CHD RISK EQUIVALENTS) <100 MG/DL MODERATELY HIGH (MULTIPLE(2+) RISK FACTORS) <130 MG/DL 0 TO 1 RISK FACTORS <160 MG/DL * NCEP REPORT. CIRCULATION 2004; 110: [phone] 26 Target for non-HDL cholesterol is 30 mg/dL higher than LDL cholesterol target. 27 REFERENCE RANGES BELOW ARE APPLICABLE TO FEMALES FIRST TRIMESTER - 0.26 - 2.66 mIU/L SECOND TRIMESTER - 0.55 - 2.73 mIU/L THIRD TRIMESTER - 0.43 - 2.91 mIU/L 28 Vitamin D Status 25-OH Vitamin D: Deficiency: <20 ng/mL Insufficiency: 20-29 ng/mL Optimal: > or=30 ng/mL For 25-OH Vitamin D testing on patients on D2-supplementation and patients for whom quantitation of D2 and D3 fractions is required, the [facility] 25-OH Vit D, (D2,D3),LC/MS/MS is recommended: Order code 73390 (patients >2 yrs). 29 Relative blood cell counts (%) should be compared with absolute cell counts (cells/mcL). Relative counts may not be clinically meaningful if the absolute count of one or more cell type is decreased. Reference ranges for relative cell counts derived from: A Manual of Laboratory and Diagnostics Tests, 9th Ed, [employer], 2015. Pediatric Reference Intervals, 7th Ed, [employer], 2011. 30 GLUCOSE REFERENCE RANGE BASED ON FASTING SPECIMEN. 31 The upper reference limit for Creatinine is approximately 13% higher for people identified as -[place]. 32 Note: Persistent reduction for 3 months or more in an eGFR <60 mL/min/1.73 m2 defines CKD. Patients with eGFR values >/=60 mL/min/1.73 m2 may also have CKD if evidence of persistent proteinuria is present. The original MDRD equation for estimated GFR is not valid for patients less than 18 years of age. Additional information may be found at [email or web address]. 33 Note: Persistent reduction for 3 months or more in an eGFR <60 mL/min/1.73 m2 defines CKD. Patients with eGFR values >/=60 mL/min/1.73 m2 may also have CKD if evidence of persistent proteinuria is present. The original MDRD equation for estimated GFR is not valid for patients less than 18 years of age. Additional information may be found at [email or web address]. 34 POSSIBLE UROGENITAL CONTAMINATION. 35 CULTURE TO FOLLOW 36 08/30/13 LAB.DWM [facility] 37 COLONY COUNT ! >100,000 CFU/ml Organism 1 ! MIXED URETHRAL MICHELLE 38 Note: Persistent reduction for 3 months or more in an eGFR <60 mL/min/1.73 m2 defines CKD. Patients with eGFR values >/=60 mL/min/1.73 m2 may also have CKD if evidence of persistent proteinuria is present. The original MDRD equation for estimated GFR is not valid for patients less than 18 years of age. Additional information may be found at [email or web address]. 39 LDL-CHOLESTEROL RISK CATEGORY* GOAL VERY HIGH (E.G. DIABETES + CVD) <70 MG/DL HIGH (DIABETICS; CHD RISK EQUIVALENTS) <100 MG/DL MODERATELY HIGH (MULTIPLE(2+) RISK FACTORS) <130 MG/DL 0 TO 1 RISK FACTORS <160 MG/DL * NCEP REPORT. CIRCULATION 2004; 110: [phone] 40 According to ADA guidelines, hemoglobin A1c <7.0% represents optimal control in non- diabetic patients. Different metrics may apply to specific patient populations. Standards of Medical Care in Diabetes-2013. Diabetes Care. 2013;36:s11-s66 For the purpose of screening for the presence of diabetes: A1C VALUE INTERPRETATION <5.7% Consistent with the absence of diabetes 5.7 - 6.4% Consistent with increased risk for diabetes (prediabetes) > or=6.5% Consistent with diabetes Currently, no consensus exists regarding use of hemoglobin A1C for diagnosis of diabetes in children. 41 GLUCOSE REFERENCE RANGE BASED ON FASTING SPECIMEN. 42 GLUCOSE REFERENCE RANGE BASED ON FASTING SPECIMEN. 43 The upper reference limit for Creatinine is approximately 13% higher for people identified as -[place]. 44 LDL-CHOLESTEROL RISK CATEGORY* GOAL VERY HIGH (E.G. DIABETES + CVD) <70 MG/DL HIGH (DIABETICS; CHD RISK EQUIVALENTS) <100 MG/DL MODERATELY HIGH (MULTIPLE(2+) RISK FACTORS) <130 MG/DL 0 TO 1 RISK FACTORS <160 MG/DL * NCEP REPORT. CIRCULATION 2004; 110: [phone] 45 Target for non-HDL cholesterol is 30 mg/dL higher than LDL cholesterol target. 46 GLUCOSE REFERENCE RANGE BASED ON FASTING SPECIMEN. 47 The upper reference limit for Creatinine is approximately 13% higher for people identified as -[place]. 48 LDL-CHOLESTEROL RISK CATEGORY* GOAL VERY HIGH (E.G. DIABETES + CVD) <70 MG/DL HIGH (DIABETICS; CHD RISK EQUIVALENTS) <100 MG/DL MODERATELY HIGH (MULTIPLE(2+) RISK FACTORS) <130 MG/DL 0 TO 1 RISK FACTORS <160 MG/DL * NCEP REPORT. CIRCULATION 2004; 110: [phone] 49 A1C VALUE(% OF TOTAL HEMOGLOBIN) INTERPRETATION < 5.7 DECREASED RISK OF DIABETES 5.7 - 6.0 INCREASED RISK OF DIABETES 6.1 - 6.4 HIGHER RISK OF DIABETES > OR=6.5 CONSISTENT WITH DIABETES These Reference Intervals are supported by the current "Standards of Medical Care in Diabetes" published in May of the current year in Diabetes Care, the Journal of the [place] [employer]. 50 LDL-CHOLESTEROL RISK CATEGORY* GOAL VERY HIGH (E.G. DIABETES + CVD) <70 MG/DL HIGH (DIABETICS; CHD RISK EQUIVALENTS) <100 MG/DL MODERATELY HIGH (MULTIPLE(2+) RISK FACTORS) <130 MG/DL 0 TO 1 RISK FACTORS <160 MG/DL * NCEP REPORT. CIRCULATION 2004; 110: [phone] 51 A1C VALUE(% OF TOTAL HEMOGLOBIN) INTERPRETATION < 5.7 DECREASED RISK OF DIABETES 5.7 - 6.0 INCREASED RISK OF DIABETES 6.1 - 6.4 HIGHER RISK OF DIABETES > OR=6.5 CONSISTENT WITH DIABETES 52 GLUCOSE REFERENCE RANGE BASED ON FASTING SPECIMEN. 53 The upper reference limit for Creatinine is approximately 13% higher for people identified as -[place]. 54 LDL-CHOLESTEROL RISK CATEGORY* GOAL VERY HIGH (E.G. DIABETES + CVD) <70 MG/DL HIGH (DIABETICS; CHD RISK EQUIVALENTS) <100 MG/DL MODERATELY HIGH (MULTIPLE(2+) RISK FACTORS) <130 MG/DL 0 TO 1 RISK FACTORS <160 MG/DL * NCEP REPORT. CIRCULATION 2004; 110: [phone] 55 A1C VALUE(% OF TOTAL HEMOGLOBIN) INTERPRETATION < 5.7 DECREASED RISK OF DIABETES 5.7 - 6.0 INCREASED RISK OF DIABETES 6.1 - 6.4 HIGHER RISK OF DIABETES > OR=6.5 CONSISTENT WITH DIABETES 56 GLUCOSE REFERENCE RANGE BASED ON FASTING SPECIMEN. 57 The upper reference limit for Creatinine is approximately 13% higher for people identified as -[place]. 58 GLUCOSE REFERENCE RANGE BASED ON FASTING SPECIMEN. 59 The upper reference limit for Creatinine is approximately 13% higher for people identified as -[place]. 60 LDL-CHOLESTEROL RISK CATEGORY* GOAL VERY HIGH (E.G. DIABETES + CVD) <70 MG/DL HIGH (DIABETICS; CHD RISK EQUIVALENTS) <100 MG/DL MODERATELY HIGH (MULTIPLE(2+) RISK FACTORS) <130 MG/DL 0 TO 1 RISK FACTORS <160 MG/DL * NCEP REPORT. CIRCULATION 2004; 110: [phone] 61 Target for non-HDL cholesterol is 30 mg/dL higher than LDL cholesterol target. 62 REFERENCE RANGES BELOW ARE APPLICABLE TO FEMALES FIRST TRIMESTER - 0.26 - 2.66 mIU/L SECOND TRIMESTER - 0.55 - 2.73 mIU/L THIRD TRIMESTER - 0.43 - 2.91 mIU/L 63 A1C VALUE(% OF TOTAL HEMOGLOBIN) INTERPRETATION < 5.7 DECREASED RISK OF DIABETES 5.7 - 6.0 INCREASED RISK OF DIABETES 6.1 - 6.4 HIGHER RISK OF DIABETES > OR=6.5 CONSISTENT WITH DIABETES 64 Tests: HBA1C Instructions: 65 0 - 0.5 ng/mL: No evidence of myocardial injury 0.6 - 1.4 ng/mL: Mild elevation, suggesting possible myocardial injury > 1.4 ng/mL: Consistent with myocardial injury 66 A1c value between 5.7% and 6.4% is considered at increased risk for diabetes. A1c value greater than 6.5 % is considered essentially diagnostic for Type II diabetes. Current guidelines recommend a treatment goal of <7% for diabetic patients. This method will measure glycosylated hemoglobin variants, HbS, HbG, HbH, HbWayne, HbC, HbE, etc. Other hemoglobin- opathies may give incorrect results with this test. 67 0 - 0.5 ng/mL: No evidence of myocardial injury 0.6 - 1.4 ng/mL: Mild elevation, suggesting possible myocardial injury > 1.4 ng/mL: Consistent with myocardial injury 68 Note: Persistent reduction for 3 months or more in an eGFR <60 mL/min/1.73 m2 defines CKD. Patients with eGFR values >/=60 mL/min/1.73 m2 may also have CKD if evidence of persistent proteinuria is present. The original MDRD equation for estimated GFR is not valid for patients less than 18 years of age. Additional information may be found at [email or web address]. 69 05/06/11 LAB.PLW Deleted by [facility] 70 <=0.49 ug/mL - Low likelihood of DIC, DVT or Pulmonary Embolism >0.49 ug/mL - Additional testing should be done to rule out DIC, DVT, or Pulmonary embolism as clinically indicated. ([facility] has established a 97.89% negative predictive value for thrombotic disease when a cutoff value of 0.5 ug/mL is used.) 71 0 - 0.5 ng/mL: No evidence of myocardial injury 0.6 - 1.4 ng/mL: Mild elevation, suggesting possible myocardial injury > 1.4 ng/mL: Consistent with myocardial injury 72 LDL-CHOLESTEROL RISK CATEGORY* GOAL VERY HIGH (E.G. DIABETES + CVD) <70 MG/DL HIGH (DIABETICS; CHD RISK EQUIVALENTS) <100 MG/DL MODERATELY HIGH (MULTIPLE(2+) RISK FACTORS) <130 MG/DL 0 TO 1 RISK FACTORS <160 MG/DL * NCEP REPORT. CIRCULATION 2004; 110: [phone] 73 GLUCOSE REFERENCE RANGE BASED ON FASTING SPECIMEN. 74 REFERENCE RANGES BELOW ARE APPLICABLE TO FEMALES FIRST TRIMESTER - 0.20 - 4.70 mIU/L SECOND TRIMESTER - 0.30 - 4.10 mIU/L THIRD TRIMESTER - 0.40 - 2.70 mIU/L 75 GLUCOSE REFERENCE RANGE BASED ON FASTING SPECIMEN. 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 This reactivity is highly specific for autoimmune hepatitis (AIH) type 2, and is not associated with AIH type 1 (lupoid AIH). Approximately 8% of patients with chronic HCV infection can also be LKM-1 positive. 78 25-OHD3 indicates both endogenous production and supplementation. 25-OHD2 is an indicator of exogenous sources such as diet or supplementation. Therapy is based on measurement of Total 25-OHD, with levels <20 ng/mL indicative of Vitamin D deficiency while levels between 20 ng/mL and 30 ng/mL suggest insufficiency. Optimal levels are > or=30ng/mL. Procedures Date CPT Code Description Status 09/04/2017 01156 Spirometry Graphic Record/Max Voluntary Vent Completed 09/04/2017 84079 EKG-Tracing & Report Completed 08/28/2017 82356 Non-Invcorrotid/Comp /Bilat Study Completed 05/20/2017 11017 PVR-Atrerial Study Completed 07/23/2016 38264 Non-Invcorrotid/Comp /Bilat Study Completed 06/20/2016 18801 Oximetry Completed 02/05/2013 63118 EKG-Tracing & Report Completed 02/03/2013 69905 Non-Invcorrotid/Comp /Bilat Study Completed 01/29/2013 41691 Echocardiography Completed 10/21/2012 65750 Spirometry Graphic Record/Max Voluntary Vent Completed 01/02/2012 08974 EKG-Tracing & Report Completed 11/23/2011 37581 Spirometry Graphic Record/Max Voluntary Vent Completed 11/23/2011 26793 Holter Monitor Office Completed 11/09/2010 82762 Spirometry Graphic Record/Max Voluntary Vent Completed 11/09/2010 80623 Holter Monitor Office Completed 11/02/2010 17345 EKG-Tracing & Report Completed 10/30/2010 79649 Non-Invcorrotid/Comp /Bilat Study Completed 10/30/2010 24773 Echocardiography Completed 01/17/2005 26740 EKG-Inter.& Hosp. Report Completed Encounters Type Date Location Provider CPT E/M Dx Office Visit 09/25/2017 2:30p Main Office Stephanie Kumar M.D. [id number] I35.0 I11.9 F41.9 Office Visit 09/16/2017 11:30a Main Office Stephanie Kumar M.D. 27490 E78.2 I11.9 J44.9 E03.9 I35.0 I73.9 K21.9 Office Visit 06/04/2017 11:45a Main Office Stephanie Kumar M.D. 97836 I11.9 E03.9 J45.909 R73.01 Office Visit 05/14/2017 1:40p [place] [address] I11.9 E03.9 J45.909 J44.0 Office Visit 03/05/2017 10:30a Main Office Stephanie Kumar M.D. 47516 I87.2 I11.9 E03.9 J45.909 Office Visit 02/07/2017 10:45a Main Office Stephanie Kumar M.D. 44163 A09 Office Visit 12/03/2016 11:15a Main Office Stephanie Kumar M.D. 72295 J45.909 I11.9 E03.9 Office Visit 08/15/2016 2:45p Main Office Stephanie Kumar M.D. 65089 K11.5 Office Visit 08/01/2016 11:00a Main Office Stephanie Kumar M.D. 56999 J45.909 I11.9 E03.9 R60.0 Office Visit 06/26/2016 10:30a Main Office Stephanie Kumar M.D. 22134 J45.909 J20.9 Office Visit 06/20/2016 11:15a Main Office Stephanie Kumar M.D. 81717 I11.9 J45.909 Office Visit 04/25/2016 11:15a Main Office Stephanie Kumar M.D. 11295 I11.9 J45.909 E03.9 M15.9 Office Visit 11/17/2013 2:15p Main Office Stephanie Kumar M.D. 32582 402.10 592.0 493.90 244.90 715.90 Office Visit 10/19/2013 2:45p Main Office Stephanie Kumar M.D. 98091 847.2 Office Visit 09/08/2013 3:00p Main Office Stephanie Kumar M.D. 47368 592.0 788.1 402.10 781.2 Office Visit 08/19/2013 10:30a Main Office Stephanie Kumar M.D. 52650 788.1 493.90 244.90 Office Visit 08/06/2013 10:45a Main Office Stephanie Kumar M.D. 57854 599.70 Office Visit 07/09/2013 10:30a Main Office Stephanie Kumar M.D. 39645 466.0 Office Visit 07/02/2013 10:30a Main Office Stephanie Kumar M.D. 90113 466.0 Office Visit 05/26/2013 10:30a Main Office Stephanie Kumar M.D. 05419 493.90 244.90 790.21 272.4 Office Visit 02/16/2013 10:30a Main Office Stephanie Kumar M.D. 92151 493.90 402.10 244.90 272.4 790.21 Office Visit 01/16/2013 9:45a [place] [address] 461.9 493.90 402.10 GENERAL Office Visit 10/29/2012 11:15a Main Office Stephanie Kumar M.D. 53379 493.90 402.10 244.90 Office Visit 10/08/2012 11:45a Main Office Stephanie Kumar M.D. 16015 493.90 599.0 Office Visit 07/30/2012 11:00a Main Office Stephanie Kumar M.D. 16158 402.10 244.90 250.00 300.02 V70.0 Office Visit 05/08/2012 11:00a Main Office Stephanie Kumar M.D. 16948 493.90 Office Visit 02/18/2012 1:45p Main Office Stephanie Kumar M.D. 69834 786.09 402.10 244.90 300.02 366.10 Office Visit 01/02/2012 1:30p Main Office Stephanie Kumar M.D. 34952 786.09 Office Visit 12/03/2011 11:30a Main Office Stephanie Kumar M.D. 82498 402.10 244.90 300.02 530.81 278.00 493.90 Office Visit 09/13/2011 12:45p Main Office Stephanie Kumar M.D. 94797 460.00 300.02 Office Visit 07/30/2011 11:30a Main Office Stephanie Kumar M.D. 31394 402.10 244.90 Office Visit 05/29/2011 11:15a Main Office Stephanie Kumar M.D. 95473 402.10 300.02 530.81 Office Visit 05/15/2011 11:30a Main Office Stephanie Kumar M.D. 19867 402.10 786.50 530.81 300.02 Office Visit 02/27/2011 1:30p Main Office Stephanie Kumar M.D. 25026 493.90 466.00 Office Visit 02/22/2011 10:45a Main Office Stephanie Kumar M.D. 53406 466.00 493.90 Office Visit 02/12/2011 10:45a Main Office Stephanie Kumar M.D. 77924 466.00 493.90 Office Visit 11/15/2010 1:30p Main Office Stephanie Kumar M.D. 98859 402.10 402.10 244.90 244.90 493.90 493.90 786.05 V03.82 Plan of Care Future Appointment(s):12/31/2017 8:00 am - Nurse at Main [facility]/14/2018 11: 00 am - Stephanie Kumar M.D. at Main Office
[2017-11-22 07:23] VITALS: BP 170/78
--- NOTE | 2017-11-22 07:52 | UC ---
Lower Extremity/Ankle HPI - HPI Summary HPI Summary: bilateral lower ext. edema x 2 week had lower ext, edema 2 weeks ago , had treatment with antibiotics concern that it is not fully improved no fever, no chills, no cough, no sob - History of Current Complaint Chief Complaint: UCLowerExtremity Stated Complaint: BILATERAL LEG COMPLAINT Time Seen by Provider: 11/22/17 07:31 Hx Obtained From: Patient Onset/Duration: Gradual Onset, Lasting Weeks - 2, Still Present Severity Initially: Moderate Severity Currently: Mild Pain Intensity: 3 Pain Scale Used: 0-10 Numeric Aggravating Factor(s): Standing, Ambulation Alleviating Factor(s): Rest, Elevation Able to Bear Weight: Yes - Allergies/Home Medications Allergies/Adverse Reactions: Allergies Allergy/AdvReac Type Severity Reaction Status Date / Time Generics AdvReac "can't Uncoded 11/22/17 07:24 tolerate" Pain Relievers AdvReac GI Upset Uncoded 11/22/17 07:24 PMH/Surg Hx/FS Hx/Imm Hx Endocrine History: Hypothyroidism Cardiovascular History: Hypertension Respiratory History: Asthma - Surgical History Surgical History: Yes Surgery Procedure, Year, and Place: Cholecystectomy, 1984, [place]; Total Hysterectomy, 1970, [place]; Ovarian Cystectomy, 1958, [place]; Appendectomy, 1942, [place] - Family History Known Family History: Positive: Hypertension, Other - No FH related to cellulitis or leg redness. - Social History Alcohol Use: Rare Substance Use Type: None Smoking Status (MU): Former Smoker Length of Time of Smoking/Using Tobacco: 1 - 1 1/2 PPD x 17 Years When Did the Patient Quit Smoking/Using Tobacco: 1968 Review of Systems Constitutional: Negative Skin: Negative Eyes: Negative ENT: Negative Respiratory: Negative Cardiovascular: Negative Is Patient Immunocompromised?: No All Other Systems Reviewed And Are Negative: Yes Physical Exam Triage Information Reviewed: Yes Appearance: Well-Appearing, No Pain Distress, Obese Vital Signs: Initial Vital Signs Temp 97.1 F 11/22/17 07:17 Pulse 92 11/22/17 07:17 Resp 18 11/22/17 07:17 BP 170/78 11/22/17 07:17 Pulse Ox 96 11/22/17 07:17 Vital Signs Reviewed: Yes Eyes: Positive: Conjunctiva Clear ENT: Positive: Normal ENT inspection, Hearing grossly normal, Pharynx normal Neck: Positive: Supple, Nontender, No Lymphadenopathy Respiratory: Positive: Chest non-tender, Lungs clear, Normal breath sounds Cardiovascular: Positive: RRR, No Murmur, Pulses Normal Abdominal Exam: Normal Musculoskeletal: Positive: Edema @ - +2 bilateral lower ext edema, no erythema, no calf tenderness Neurological: Positive: Alert Skin Exam: Normal Lower Extremity Course/Dx - Differential Dx/Diagnosis Provider Diagnoses: bilateral peripheral edema Discharge - Sign-Out/Discharge Documenting (check all that apply): Patient Departure - Discharge Plan Condition: Stable Disposition: HOME Patient Education Materials: Leg Edema (ED) Referrals: Stephanie Kumar MD [Primary Care Provider] - 1 Week - Billing Disposition and Condition Condition: STABLE Disposition: Home
== END 2017-11-22 07:45 | disposition home or self-care (01) ==
LOC: UCCORT 07:06
DX: R60.9 Edema, unspecified (principal); Z87.891 Personal history of nicotine dependence; I10 Essential (primary) hypertension
CPT/HCPCS: 99211; G0463